=== PATIENT | male | born 1995 | race American Indian/Alaskan Native ===

== ENCOUNTER 2017-05-31 13:55 | Emergency (ER) | payer SELFPAY ==
[2017-05-31 14:45] VITALS: BP 127/79
[2017-05-31] MEDS ORDERED: MOTRIN PO ONE (16:04)
--- NOTE | 2017-05-31 16:49 | Emergency Department Report ---
ED Lower Extremity HPI - General Chief Complaint: Extremity Injury, Lower Stated Complaint: RIGHT KNEE INJURY Time Seen by Provider: 05/31/17 16:04 Source: patient Mode of arrival: Ambulatory Limitations: No Limitations - History of Present Illness Initial Comments: This is a 22-year-old male nontoxic, well nourished in appearance, no acute signs of distress presents to the ED with c/o of right knee pain and swelling. Patient stated he was playing with son this morning and twisted knee. Patient denies any trauma to the area. Patient denies any numbness, tingling, fever, chills, headache, nausea, vomiting, chest pain, shortness of breathe, numbness or tingling. Patient denies joint redness. Denies decreased ROM. PAtient denies any allergies or PMH. MD Complaint: knee injury -: days(s) (1) Injury: Knee: Right Type of Injury: inversion Place: home Severity: mild Severity scale (0 -10): 8 Improves With: immobilization Worsens With: movement, palpation Associated Symptoms: swelling, able to partially bear weight, ambulatory. denies: snap/pop sensation, numbness, tingling, unable to bear weight - Related Data Previous Rx's Medication Instructions Recorded Last Taken Type Ibuprofen [Motrin] 600 mg PO Q8H PRN #30 tablet 05/31/17 Unknown Rx Allergies Allergy/AdvReac Type Severity Reaction Status Date / Time No Known Allergies Allergy Unverified 05/31/17 14:41 ED Review of Systems ROS: Stated complaint: RIGHT KNEE INJURY Other details as noted in HPI Constitutional: denies: chills, fever Eyes: denies: eye pain, eye discharge, vision change ENT: denies: ear pain, throat pain Respiratory: denies: cough, shortness of breath, wheezing Cardiovascular: denies: chest pain, palpitations Endocrine: no symptoms reported Gastrointestinal: denies: abdominal pain, nausea, diarrhea Genitourinary: denies: urgency, dysuria Musculoskeletal: arthralgia. denies: back pain, joint swelling Skin: denies: rash, lesions Neurological: denies: headache, weakness, paresthesias Psychiatric: denies: anxiety, depression Hematological/Lymphatic: denies: easy bleeding, easy bruising ED Past Medical Hx - Past Medical History Previous Medical History?: No - Surgical History Past Surgical History?: No - Social History Smoking Status: Current Every Day Smoker Substance Use Type: None - Medications Home Medications: Home Medications Medication Instructions Recorded Confirmed Last Taken Type Ibuprofen [Motrin] 600 mg PO Q8H PRN #30 tablet 05/31/17 Unknown Rx ED Physical Exam - General Limitations: No Limitations General appearance: alert, in no apparent distress - Head Head exam: Present: atraumatic, normocephalic - Eye Eye exam: Present: normal appearance Pupils: Present: normal accommodation - ENT ENT exam: Present: normal exam, mucous membranes moist - Neck Neck exam: Present: normal inspection, full ROM - Respiratory Respiratory exam: Present: normal lung sounds bilaterally. Absent: respiratory distress, wheezes, rales, rhonchi, stridor, chest wall tenderness, accessory muscle use, decreased breath sounds, prolonged expiratory - Cardiovascular Cardiovascular Exam: Present: regular rate, normal rhythm, normal heart sounds. Absent: bradycardia, tachycardia, irregular rhythm, systolic murmur, diastolic murmur, rubs, gallop - GI/Abdominal GI/Abdominal exam: Present: soft, normal bowel sounds - Rectal Rectal exam: Present: deferred - Extremities Exam Extremities exam: Present: normal inspection, full ROM, tenderness, normal capillary refill. Absent: pedal edema, joint swelling, calf tenderness - Expanded Lower Extremity Exam Right Hip exam: Present: normal inspection, full ROM Upper Leg exam: Present: normal inspection, full ROM Knee exam: Present: normal inspection, full ROM, tenderness, swelling, full knee extension. Absent: abrasion, laceration, ecchymosis, deformity, crepidus, dislocation, erythema, effusion, pain w/ pronation/supination, posterior draw sign, pain/laxity with valgus, pain/laxity with varus Lower Leg exam: Present: normal inspection, full ROM. Absent: tenderness, swelling, abrasion, laceration, ecchymosis, deformity, crepidus, dislocation, erythema, palpable cord, Yasmine's sign Ankle exam: Present: normal inspection, full ROM Foot/Toe exam: Present: normal inspection. Absent: full ROM, tenderness Neuro vascular tendon exam: Present: no vascular compromise. Absent: pulse deficit, abnormal cap refill, motor deficit, sensory deficit, tendon deficit, extremity cold to touch, pallor, abnormal 2-point discrimination, decreased fine /light touch, foot drop, peroneal nerve deficit, significant pain with passive ROM of distal joint Gait: Positive: observed and limited by pain - Back Exam Back exam: Present: normal inspection, full ROM - Neurological Exam Neurological exam: Present: alert, oriented X3, normal gait - Psychiatric Psychiatric exam: Present: normal affect, normal mood - Skin Skin exam: Present: warm, dry, intact, normal color. Absent: rash ED Course Vital Signs 05/31/17 14:41 Temperature 98.3 F Pulse Rate 81 Respiratory 15 Rate Blood Pressure 127/79 O2 Sat by Pulse 100 Oximetry - Reevaluation(s) Reevaluation #1: 05/31/17 16:52 Patient is speaking in full sentences with no signs of distress noted. ED Lower Extremity MDM - Medical Decision Making This is a 22-year-old male that presents with right knee strain. Patient is stable and was examined by me. Xray has been obtained and dictated by the radiologist within normal limits. Patient is notified of the xray results with no questions noted by the patient. There is no joint redness or signs of any cellultitis. Normal ROM. Not warm to touch. Patient received Motrin in the ED which patient stated symptoms are improving and subsiding. Patient is dishcarged with motrin and wasinstructed to RICE therapy. Pt receievd knee immbolizer for patient control. PAtient was instructed and referrred to Follow- up with a orthopedic doctor in 3-5 days or if symptoms worsen and continue return to emergency room as soon as possible. At time of discharge, the patient does not seem toxic or ill in appearance. No acute signs of distress noted. Patient agrees to discharge treatment plan of care. No further questions noted by the patient. Critical care attestation.: If time is entered above; I have spent that time in minutes in the direct care of this critically ill patient, excluding procedure time. ED Disposition Clinical Impression: Strain of right knee Qualifiers: Encounter type: initial encounter Qualified Code(s): S86.911A - Strain of unspecified muscle(s) and tendon(s) at lower leg level, right leg, initial encounter Disposition: TO HOME OR SELFCARE Is pt being admited?: No Does the pt Need Aspirin: No Condition: Stable Instructions: Knee Pain (ED), Knee Immobilizer (ED), RICE Therapy (ED), Ibuprofen (By mouth) Additional Instructions: Follow-up with a orthopedic doctor in 3-5 days or if symptoms worsen and continue return to emergency room as soon as possible. Prescriptions: Ibuprofen [Motrin] 600 mg PO Q8H PRN #30 tablet PRN Reason: Pain Referrals: PRIMARY CARE, [Referring] - 3-5 Days CARLOS PRINCE MD [Staff Physician] - 3-5 Days [facility] [place] [Outside] - 3-5 Days [facility] [Outside] - 3-5 Days Forms: Work/School Release Form(ED)
--- NOTE | 2017-05-31 17:30 | XRay Report ---
FINAL REPORT EXAM: XR KNEE 3V RT HISTORY: right knee pain TECHNIQUE: AP, oblique, and lateral views of the right knee PRIORS: None. FINDINGS: No acute fracture or dislocation is seen. The soft tissues are unremarkable with no evidence for suprapatellar joint effusion. Joint spaces are maintained and bony mineralization is normal. IMPRESSION: Negative views of the right knee.
== END 2017-05-31 17:43 | disposition home or self-care (01) ==
LOC: EDSEX → ED 13:55
DX: S86.911A Strain of unspecified muscle(s) and tendon(s) at lower leg level, right leg, initial encounter (principal); F17.200 Nicotine dependence, unspecified, uncomplicated; X58.XXXA Exposure to other specified factors, initial encounter; Y93.89 Activity, other specified; Y92.89 Other specified places as the place of occurrence of the external cause; Y99.8 Other external cause status
CPT/HCPCS: 99283

== ENCOUNTER 2019-04-30 08:35 | Emergency (ER) | payer SELFPAY ==
--- NOTE | 2019-04-30 11:23 | Emergency Department Report ---
ED General Adult HPI - General Chief complaint: Nausea/Vomiting/Diarrhea Stated complaint: STOMACH PAIN,COUGH Time Seen by Provider: 04/30/19 10:12 Source: patient Mode of arrival: Ambulatory Limitations: No Limitations - History of Present Illness Initial comments: 24-year-old -Citizen Of [place] male patient with history of "kidney growth removal" in 1999 presents with complaints of stomachaches, 50 pound weight loss, headaches, loss of appetite, nausea and vomiting, cough, and hair loss for the past 6 months. Patient is requesting testing for HIV. He also states he has had a diffuse rash that is dry and dark pigmented on his arms chest and legs. He admits to abdominal pin but denies any chest pain, shortness of breath, hematemesis/coffee-ground emesis, diarrhea, or hematochezia/melena. He also denies any known family history of cancer or thyroid disease. -: Gradual, month(s) - Related Data Previous Rx's Medication Instructions Recorded Last Taken Type Ibuprofen [Motrin] 600 mg PO Q8H PRN #30 tablet 05/31/17 Unknown Rx Allergies Allergy/AdvReac Type Severity Reaction Status Date / Time No Known Allergies Allergy Unverified 05/31/17 14:41 ED Review of Systems ROS: Stated complaint: STOMACH PAIN,COUGH Other details as noted in HPI Constitutional: malaise, weakness. denies: chills, diaphoresis, fever Eyes: denies: eye pain, vision change ENT: denies: throat pain Respiratory: cough. denies: shortness of breath Cardiovascular: denies: chest pain, edema, syncope Endocrine: denies: excessive sweating, flushing, increased thirst Gastrointestinal: abdominal pain (intermittent ), nausea, vomiting. denies: diarrhea, constipation, hematemesis, melena, hematochezia Genitourinary: denies: dysuria, frequency, hematuria, discharge, testicular pain, testicular mass Skin: rash Neurological: headache. denies: numbness, paresthesias, confusion, abnormal gait Hematological/Lymphatic: denies: easy bleeding, swollen glands ED Past Medical Hx - Past Medical History Previous Medical History?: No - Surgical History Past Surgical History?: Yes Additional Surgical History: "growth removed from kidney" - Social History Smoking Status: Current Every Day Smoker Substance Use Type: None - Medications Home Medications: Home Medications Medication Instructions Recorded Confirmed Last Taken Type Ibuprofen [Motrin] 600 mg PO Q8H PRN #30 tablet 05/31/17 Unknown Rx ED Physical Exam - General Limitations: No Limitations General appearance: alert, in no apparent distress - Head Head exam: Present: atraumatic, normocephalic - Eye Eye exam: Present: normal appearance. Absent: scleral icterus - ENT ENT exam: Present: normal orophraynx, mucous membranes moist - Neck Neck exam: Present: normal inspection, full ROM. Absent: tenderness, lymphadenopathy - Respiratory Respiratory exam: Present: normal lung sounds bilaterally. Absent: respiratory distress - Cardiovascular Cardiovascular Exam: Present: normal rhythm, tachycardia (mild ), normal heart sounds - GI/Abdominal GI/Abdominal exam: Present: soft, tenderness (periumbilical), normal bowel sounds. Absent: distended, guarding, rebound, rigid, organomegaly, mass, hernia - Rectal Rectal exam: Present: deferred - Extremities Exam Extremities exam: Present: normal inspection, full ROM. Absent: tenderness, pedal edema, joint swelling, calf tenderness (No swelling or edema noted) - Back Exam Back exam: Present: normal inspection. Absent: CVA tenderness (R), CVA tenderness (L), paraspinal tenderness, vertebral tenderness - Neurological Exam Neurological exam: Present: alert, oriented X3, CN II-XII intact, normal gait. Absent: motor sensory deficit - Expanded Neurological Exam Expanded Cerebellar function: Finger to Nose: Normal, Heel to [place]: Normal, Romberg: Normal Sensory exam: Upper Extremity Light Touch: Normal, Lower Extremity Light Touch: Normal Motor strength exam: RUE: 5, LUE: 5, RLE: 5, LLE: 5 - Psychiatric Psychiatric exam: Present: normal affect, normal mood - Skin Skin exam: Present: warm, dry, intact, other (Diffuse maculopapular darkening dryness of skin noted on torso arms and legs without erythema or tenderness noted). Absent: cyanosis, diaphoretic, erythema ED Course Vital Signs 04/30/19 04/30/19 08:40 16:24 Temperature 98.3 F 102.5 F H Pulse Rate 102 H 121 H Respiratory 16 18 Rate Blood Pressure 124/81 120/77 O2 Sat by Pulse 99 100 Oximetry ED Medical Decision Making - Lab Data Result diagrams: 04/30/19 11:19 04/30/19 11:19 Lab Results 04/30/19 04/30/19 04/30/19 Range/Units 11:19 11:19 11:19 WBC 3.6 L (4.5-11.0) K/mm3 RBC 3.60 L (3.65-5.03) M/mm3 Hgb 10.3 L (11.8-15.2) gm/dl Hct 30.2 L (35.5-45.6) % MCV 84 (84-94) fl MCH 29 (28-32) pg MCHC 34 (32-34) % RDW 13.6 (13.2-15.2) % Plt Count 141 (140-440) K/mm3 [place] % (Auto) Rehabilitation Team Lead Add Manual Diff Complete Total Counted 100 Seg Neuts % (Manual) 79.0 H (40.0-70.0) % Band Neutrophils % 6.0 % Lymphocytes % (Manual) 4.0 L (13.4-35.0) % Reactive Lymphs % (Man) 0 % Monocytes % (Manual) 5.0 (0.0-7.3) % Eosinophils % (Manual) 6.0 H (0.0-4.3) % Basophils % (Manual) 0 (0.0-1.8) % Metamyelocytes % 0 % Myelocytes % 0 % Promyelocytes % 0 % Blast Cells % 0 % Nucleated RBC % 1.0 H (0.0-0.9) % Seg Neutrophils # Man 2.8 (1.8-7.7) K/mm3 Band Neutrophils # 0.2 K/mm3 Lymphocytes # (Manual) 0.1 L (1.2-5.4) K/mm3 Abs React Lymphs (Man) 0.0 K/mm3 Monocytes # (Manual) 0.2 (0.0-0.8) K/mm3 Eosinophils # (Manual) 0.2 (0.0-0.4) K/mm3 Basophils # (Manual) 0.0 (0.0-0.1) K/mm3 Metamyelocytes # 0.0 K/mm3 Myelocytes # 0.0 K/mm3 Promyelocytes # 0.0 K/mm3 Blast Cells # 0.0 K/mm3 WBC Morphology Not Reportable Hypersegmented Neuts Not Reportable Hyposegmented Neuts Not Reportable Hypogranular Neuts Not Reportable Smudge Cells Not Reportable Toxic Granulation Not Reportable Toxic Vacuolation Not Reportable Dohle Bodies Not Reportable Pelger-Huet Anomaly Not Reportable Tuan Rods Not Reportable Platelet Estimate Consistent w auto Clumped Platelets Not Reportable Plt Clumps, EDTA Not Reportable Large Platelets Not Reportable Giant Platelets Not Reportable Platelet Satelliting Not Reportable Plt Morphology Comment Not Reportable RBC Morphology Not Reportable Dimorphic RBCs Not Reportable Polychromasia Few Hypochromasia Not Reportable Poikilocytosis Not Reportable Anisocytosis 1+ Microcytosis Not Reportable Macrocytosis Not Reportable Spherocytes Not Reportable Pappenheimer Bodies Not Reportable Sickle Cells Not Reportable Target Cells Not Reportable Tear Drop Cells Not Reportable Ovalocytes Not Reportable Helmet Cells Not Reportable Quintanilla-Gas Bodies Not Reportable Logan Rings Not Reportable Tracy Cells Not Reportable Bite Cells Not Reportable Crenated Cell Not Reportable Elliptocytes 1+ Acanthocytes (Spur) Not Reportable Rouleaux Not Reportable Hemoglobin C Crystals Not Reportable Schistocytes Not Reportable Malaria parasites Not Reportable Dayo Bodies Not Reportable Hem Pathologist Commnt No Sodium 141 (137-145) mmol/L Potassium 3.5 L (3.6-5.0) mmol/L Chloride 102.0 (98-107) mmol/L Carbon Dioxide 24 (22-30) mmol/L Anion Gap 19 mmol/L BUN 7 L (9-20) mg/dL Creatinine 0.9 (0.8-1.5) mg/dL Estimated GFR > 60 ml/min BUN/Creatinine Ratio 8 % Glucose 92 (75-100) mg/dL Lactic Acid (0.7-2.0) mmol/L Calcium 8.9 (8.4-10.2) mg/dL Total Bilirubin 0.30 (0.1-1.2) mg/dL Direct Bilirubin < 0.2 (0-0.2) mg/dL Indirect Bilirubin 0.1 mg/dL AST 141 H (5-40) units/L ALT 27 (7-56) units/L Alkaline Phosphatase 128 (35-129) units/L Total Protein 7.2 (6.3-8.2) g/dL Albumin 3.5 L (3.9-5) g/dL Albumin/Globulin Ratio 0.9 % Lipase 75 H (13-60) units/L TSH 2.670 (0.270-4.200) mlU/mL Urine Color (Yellow) Urine Turbidity (Clear) Urine pH (5.0-7.0) Ur Specific [place] (1.003-1.030) Urine Protein (Negative) mg/dL Urine Glucose (UA) (Negative) mg/dL Urine Ketones (Negative) mg/dL Urine Blood (Negative) Urine Nitrite (Negative) Urine Bilirubin (Negative) Urine Urobilinogen (<2.0) mg/dL Ur Leukocyte Esterase (Negative) Urine WBC (Auto) (0.0-6.0) /HPF Urine RBC (Auto) (0.0-6.0) /HPF 04/30/19 04/30/19 Range/Units 13:01 14:54 WBC (4.5-11.0) K/mm3 RBC (3.65-5.03) M/mm3 Hgb (11.8-15.2) gm/dl Hct (35.5-45.6) % MCV (84-94) fl MCH (28-32) pg MCHC (32-34) % RDW (13.2-15.2) % Plt Count (140-440) K/mm3 [place] % (Auto) Add Manual Diff Total Counted Seg Neuts % (Manual) (40.0-70.0) % Band Neutrophils % % Lymphocytes % (Manual) (13.4-35.0) % Reactive Lymphs % (Man) % Monocytes % (Manual) (0.0-7.3) % Eosinophils % (Manual) (0.0-4.3) % Basophils % (Manual) (0.0-1.8) % Metamyelocytes % % Myelocytes % % Promyelocytes % % Blast Cells % % Nucleated RBC % (0.0-0.9) % Seg Neutrophils # Man (1.8-7.7) K/mm3 Band Neutrophils # K/mm3 Lymphocytes # (Manual) (1.2-5.4) K/mm3 Abs React Lymphs (Man) K/mm3 Monocytes # (Manual) (0.0-0.8) K/mm3 Eosinophils # (Manual) (0.0-0.4) K/mm3 Basophils # (Manual) (0.0-0.1) K/mm3 Metamyelocytes # K/mm3 Myelocytes # K/mm3 Promyelocytes # K/mm3 Blast Cells # K/mm3 WBC Morphology Hypersegmented Neuts Hyposegmented Neuts Hypogranular Neuts Smudge Cells Toxic Granulation Toxic Vacuolation Dohle Bodies Pelger-Huet Anomaly Tuan Rods Platelet Estimate Clumped Platelets Plt Clumps, EDTA Large Platelets Giant Platelets Platelet Satelliting Plt Morphology Comment RBC Morphology Dimorphic RBCs Polychromasia Hypochromasia Poikilocytosis Anisocytosis Microcytosis Macrocytosis Spherocytes Pappenheimer Bodies Sickle Cells Target Cells Tear Drop Cells Ovalocytes Helmet Cells Quintanilla-Gas Bodies Logan Rings Tracy Cells Bite Cells Crenated Cell Elliptocytes Acanthocytes (Spur) Rouleaux Hemoglobin C Crystals Schistocytes Malaria parasites Dayo Bodies Hem Pathologist Commnt Sodium (137-145) mmol/L Potassium (3.6-5.0) mmol/L Chloride (98-107) mmol/L Carbon Dioxide (22-30) mmol/L Anion Gap mmol/L BUN (9-20) mg/dL Creatinine (0.8-1.5) mg/dL Estimated GFR ml/min BUN/Creatinine Ratio % Glucose (75-100) mg/dL Lactic Acid 1.40 (0.7-2.0) mmol/L Calcium (8.4-10.2) mg/dL Total Bilirubin (0.1-1.2) mg/dL Direct Bilirubin (0-0.2) mg/dL Indirect Bilirubin mg/dL AST (5-40) units/L ALT (7-56) units/L Alkaline Phosphatase (35-129) units/L Total Protein (6.3-8.2) g/dL Albumin (3.9-5) g/dL Albumin/Globulin Ratio % Lipase (13-60) units/L TSH (0.270-4.200) mlU/mL Urine Color Yellow (Yellow) Urine Turbidity Clear (Clear) Urine pH 7.0 (5.0-7.0) Ur Specific [place] 1.008 (1.003-1.030) Urine Protein <15 mg/dl (Negative) mg/dL Urine Glucose (UA) Neg (Negative) mg/dL Urine Ketones Neg (Negative) mg/dL Urine Blood Neg (Negative) Urine Nitrite Neg (Negative) Urine Bilirubin Neg (Negative) Urine Urobilinogen 2.0 (<2.0) mg/dL Ur Leukocyte Esterase Neg (Negative) Urine WBC (Auto) < 1.0 (0.0-6.0) /HPF Urine RBC (Auto) < 1.0 (0.0-6.0) /HPF - Radiology Data Radiology results: report reviewed CHEST 2 VIEWS INDICATION: cough x 2.5 months. COMPARISON: None FINDINGS: Support devices: None. Heart: Within normal limits. Lungs/pleura: Patchy bilateral infiltrates are identified right greater than left. No significant pleural fluid or pneumothorax. Additional findings: None. IMPRESSION: Bilateral patchy infiltrates are identified concerning for pneumonia. CT ABDOMEN AND PELVIS WITH CONTRAST HISTORY: mid abdominal pain COMPARISON: None. TECHNIQUE: Axial CT images were obtained through the abdomen and pelvis after 100 cc of Omnipaque 300 intravenously. Sagittal and coronal reformatted images. All CT scans at this location are p erformed using CT dose reduction for ALARA by means of automated exposure control. FINDINGS: CT ABDOMEN: Lung Bases: Patchy peribronchial infiltrates are noted in the lower lung zones concerning for pneumonia. Liver: No significant abnormality. Biliary: No significant abnormality. Spleen: No significant abnormality. Unenlarged. Pancreas: No significant abnormality. Adrenals: No significant abnormality. Kidneys: There is mild to moderate pyelocaliectasis in the right kidney. There appears to be a transition point near the ureteropelvic junction. No obstructing lesion is seen. The left kidney and collecting system are unremarkable. Lymphatics: No lymphadenopathy. Vasculature: No significant abnormality. Bowel/Peritoneum: No significant abnormality. No free air. No free fluid. The appendix is not confidently identified. CT PELVIS: : No significant abnormality. Osseous Structures: No significant abnormality. Additional Findings: None IMPRESSION: Bilateral lung infiltrates are partially imaged concerning for pneumonia or other inflammatory process. Mild to moderate pyelocaliectasis in the right kidney. Stricture at the right UPJ is suspected. No acute inflammatory process is identified in the abdomen or pelvis. - Medical Decision Making 24-year-old male patient here with complaints of weight loss, hair loss, decreased appetite, nausea and vomiting, abdominal pain, and cough for the past 6 months. He denies known history of HIV. WBCs = 3.6. TSH is normal. ALT and lipase are mildly elevated. CT abdomen is negative for acute findings, however does show right renal changes likely from the removal of the mass on patient's kidney years ago. Initial vitals were normal however patient now is tachycardia at 120 with a fever 102.5. Lactic acid is normal. Blood cultures taken. Patient given Levaquin IV. Discussed patient with Dr. Feng, [facility], who is to discharge this patient home. Critical care attestation.: If time is entered above; I have spent that time in minutes in the direct care of this critically ill patient, excluding procedure time. ED Disposition Clinical Impression: Bilateral pneumonia Qualifiers: Pneumonia type: due to unspecified organism Lung location: unspecified part of lung Qualified Code(s): J18.9 - Pneumonia, unspecified organism Disposition: OP ADMIT IP TO THIS HOSP Is pt being admited?: Yes Condition: Stable Instructions: Bacterial Pneumonia (ED) Referrals: MARCIN NAVA MD [Staff Physician] - 3-5 Days
[2019-04-30 11:32] LABS: Hematocrit 30.2 % (35.5-45.6); Hemoglobin 10.3 gm/dl (11.8-15.2); Mean Corpuscular HGB Conc 34 % (32-34); Mean Corpuscular Volume 84 fl (84-94); Platelet Count 141 K/mm3 (140-440); Red Cell Distribution Width 13.6 % (13.2-15.2)
--- NOTE | 2019-04-30 11:53 | XRay Report ---
CHEST 2 VIEWS INDICATION: cough x 2.5 months. COMPARISON: None FINDINGS: Support devices: None. Heart: Within normal limits. Lungs/pleura: Patchy bilateral infiltrates are identified right greater than left. No significant pl eural fluid or pneumothorax. Additional findings: None. IMPRESSION: Bilateral patchy infiltrates are identified concerning for pneumonia. Signer Name: Stefan Alejandre Jr, MD Signed: 04/30/2019 11:49 AM Workstation Name: [id number]
[2019-04-30 12:17] LABS: Alanine Aminotransferase 27 units/L (7-56); Albumin 3.5 g/dL (3.9-5); BUN/Creatinine Ratio 8; Bilirubin,Direct < 0.2 mg/dL (0-0.2); Blood Urea Nitrogen 7 mg/dL (9-20); Calcium 8.9 mg/dL (8.4-10.2); Hemolysis Index 6
[2019-04-30 13:15] LABS: Anisocytosis 1+; Band Neutrophils # (Manual) 0.2 K/mm3; Basophils % (Manual) 0 % (0.0-1.8); Total Cells Counted 100
[2019-04-30 13:16] LABS: Platelet Estimate Consistent w Auto
[2019-04-30 13:47] LABS: Bilirubin,Urine NEG (Negative); Blood,Urine NEG (Negative); Color,Urine Yellow (Yellow); Protein,Urine <15 mg/dL mg/dL (Negative)
[2019-04-30 13:57] LABS: RBC,Urine < 1.0 /HPF (0.0-6.0); WBC,Urine < 1.0 /HPF (0.0-6.0)
--- NOTE | 2019-04-30 14:19 | Cat Scan Report ---
CT ABDOMEN AND PELVIS WITH CONTRAST HISTORY: mid abdominal pain COMPARISON: None. TECHNIQUE: Axial CT images were obtained through the abdomen and pelvis after 100 cc of Omnipaque 300 intravenously. Sagittal and coronal reformatted images. All CT scans at this location are performed using CT dose reduction for ALARA by means of automated exposure control. FINDINGS: CT ABDOMEN: Lung Bases: Patchy peribronchial infiltrates are noted in the lower lung zones concerning for pneumon ia. Liver: No significant abnormality. Biliary: No significant abnormality. Spleen: No significant abnormality. Unenlarged. Pancreas: No significant abnormality. Adrenals: No significant abnormality. Kidneys: There is mild to moderate pyelocaliectasis in the right kidney. There appears to be a transi tion point near the ureteropelvic junction. No obstructing lesion is seen. The left kidney and collec ting system are unremarkable. Lymphatics: No lymphadenopathy. Vasculature: No significant abnormality. Bowel/Peritoneum: No significant abnormality. No free air. No free fluid. The appendix is not confide ntly identified. CT PELVIS: : No significant abnormality. Osseous Structures: No significant abnormality. Additional Findings: None IMPRESSION: Bilateral lung infiltrates are partially imaged concerning for pneumonia or other inflammatory proces s. Mild to moderate pyelocaliectasis in the right kidney. Stricture at the right UPJ is suspected. No acute inflammatory process is identified in the abdomen or pelvis. Signer Name: Stefan Alejandre Jr, MD Signed: 04/30/2019 2:15 PM Workstation Name: [id number]
[2019-04-30] MEDS ORDERED: hydrOXYzine HCL 25 MG TAB PO ONE (14:21)
[2019-04-30] MEDS ORDERED: BENZONATATE 100 MG CAP PO ONE (14:21)
[2019-04-30] MEDS ORDERED: IBUPROFEN 800 MG TAB PO ONE (16:28)
[2019-04-30] MEDS ORDERED: SODIUM CHLORIDE 0.9% 1000 ML 1,000 ML IV ONE ×2 (16:30)
[2019-04-30 19:36] VITALS: BP 123/77
--- NOTE | 2019-04-30 20:11 | Event Note ---
Date: 04/30/19 24-year-old male presents to ED for evaluation. Patient found to have atypical pneumonia as well as a combination of symptoms suggestive of systemic sclerosis. Patient treated with IV antibiotic therapy and IV fluid resuscitation therapy with improvement in symptoms. Patient is medically optimized and back to usual state of health. Patient is discharged home with oral antibiotic therapy and instructed to follow-up with primary care physician within 3 to 5 days for reevaluation. Patient also instructed to follow-up with rheumatology within 3 to 5 days for further care and evaluation. Patient treated with HIV testing as well as autoimmune evaluation with CHESTER, SCL 70, ANCA, and rheumatoid factor. Patient instructed to follow-up with primary care physician for review of lab studies and further care and evaluation. Patient counseled regarding noncompliance with outpatient follow-up. Patient acknowledges prior initial work-up without returning for completion of medical evaluation. Patient acknowledges understanding risk of worsening symptoms and even if he again becomes lost to outpatient follow-up and reevaluation. ED Physical Exam - General Limitations: No Limitations General appearance: alert, in no apparent distress - Head Head exam: Present: atraumatic, normocephalic - Eye Eye exam: Present: normal appearance. Absent: scleral icterus - ENT ENT exam: Present: normal orophraynx, mucous membranes moist - Neck Neck exam: Present: normal inspection, full ROM. Absent: tenderness, lymphadenopathy - Respiratory Respiratory exam: Present: normal lung sounds bilaterally. Absent: respiratory distress - Cardiovascular Cardiovascular Exam: Present: normal rhythm, tachycardia (mild ), normal heart sounds - GI/Abdominal GI/Abdominal exam: Present: soft, tenderness (periumbilical), normal bowel sounds. Absent: distended, guarding, rebound, rigid, organomegaly, mass, hernia - Rectal Rectal exam: Present: deferred - Extremities Exam Extremities exam: Present: normal inspection, full ROM. Absent: tenderness, pedal edema, joint swelling, calf tenderness (No swelling or edema noted) - Back Exam Back exam: Present: normal inspection. Absent: CVA tenderness (R), CVA tenderness (L), paraspinal tenderness, vertebral tenderness - Neurological Exam Neurological exam: Present: alert, oriented X3, CN II-XII intact, normal gait. Absent: motor sensory deficit - Expanded Neurological Exam Expanded Cerebellar function: Finger to Nose: Normal, Heel to [place]: Normal, Romberg: Normal Sensory exam: Upper Extremity Light Touch: Normal, Lower Extremity Light Touch: Normal Motor strength exam: RUE: 5, LUE: 5, RLE: 5, LLE: 5 - Psychiatric Psychiatric exam: Present: normal affect, normal mood - Skin Skin exam: Present: warm, dry, intact, other (Diffuse maculopapular darkening dryness of skin noted on torso arms and legs without erythema or tenderness noted). Absent: cyanosis, diaphoretic, erythema
[2019-05-04 07:08] LABS: HIV-1 Antibody Differentiation SEE SCANNED RESULT; HIV-2 Antibody Differentiation SEE SCANNED RESULT
[2019-05-04 12:43] LABS: ANA Screen, IFA Negative (Negative); Myeloperoxidase Antibody <1.0 AI (<1.0)
== END 2019-04-30 21:58 | disposition admitted as inpatient to this hospital (09) ==
LOC: ED 08:35
DX: J18.9 Pneumonia, unspecified organism (principal)
CPT/HCPCS: 36415; 71046; 74177; 80048; 80076; 81001; 82140; 83690; 84443; 85007; 85025; 86021; 86038; 86235; 86431; 86689; 87040; 87400; 96365; 99284; J1956; J7030; Q9967

== ENCOUNTER 2019-05-30 16:25 | Inpatient (IN) | payer SELFPAY ==
[2019-05-30] MEDS ORDERED: SODIUM CHLORIDE 0.9% 1000 ML 1,000 ML IV ONE (18:37)
--- NOTE | 2019-05-30 18:42 | Emergency Department Report ---
ED Syncope HPI - General Chief Complaint: Dyspnea/Respdistress Stated Complaint: SHORTNESS OF BREATH Time Seen by Provider: 05/30/19 18:36 Source: patient - History of Present Illness Initial Comments: Patient is a 24-year-old male that presents emergency room with complaints of syncopal episode. Patient states that he was at his residence and became short of breath and having palpitations and the patient passed out. Patient states he was feeling anxious. Patient states he was recently diagnosed with HIV 2 weeks ago. Patient states that when he was evaluated for HIV he was also tested for covid-19. Patient states that he was hyperventilating when he first arrived and was feeling anxious. Patient states he has relaxed. Patient states he was smoking marijuana and had a big cough and then became acutely short of breath. Patient states his shortness of breath is resolved. Patient denies cough at this time. Patient denies fever and chills at this time. Patient states he is currently taking his prescriptions for his HIV. Patient states he has not seen a ID yet. Timing/Prior Episodes: single episode today Precipitating Factors: Positive: lightheadedness, rapid heart beat (Shortness of breath and anxiety), other Context: emotional stress Loss of Consciousness: brief (seconds) Current Symptoms: lightheadedness. denies: blurred vision, chest pain, diap horesis, dizziness, headache, injury, loss of bladder control, loss of bowel control, motionless, nausea, pale, shallow/rapid breathing, weak/absent pulse - Related Data Allergies/Adverse Reactions: Allergies No Known Allergies Allergy (Verified 05/30/19 17:09) Home Medications: Ambulatory Orders Ibuprofen [Motrin] 600 mg PO Q8H PRN #30 tablet 05/31/17 Ciprofloxacin HCl [Ciprofloxacin TAB] 500 mg PO Q12HR #20 tab 04/30/19 ED Review of Systems ROS: Stated complaint: SHORTNESS OF BREATH Other details as noted in HPI Constitutional: denies: chills, fever Eyes: denies: eye pain, eye discharge, vision change ENT: denies: ear pain, throat pain Respiratory: shortness of breath. denies: cough, wheezing Cardiovascular: denies: chest pain, palpitations Endocrine: no symptoms reported Gastrointestinal: denies: abdominal pain, nausea, diarrhea Genitourinary: denies: urgency, dysuria Musculoskeletal: denies: back pain, joint swelling, arthralgia Skin: denies: rash, lesions Neurological: as per HPI. denies: headache, paresthesias Psychiatric: anxiety. 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" - Family History Family history: no significant - Social History Smoking Status: Current Every Day Smoker Substance Use Type: Alcohol, Marijuana - Medications Home Medications: Home Medications Medication Instructions Recorded Confirmed Last Taken Type Ibuprofen [Motrin] 600 mg PO Q8H PRN #30 tablet 05/31/17 Unknown Rx Ciprofloxacin HCl [Ciprofloxacin 500 mg PO Q12HR #20 tab 04/30/19 Unknown Rx TAB] ED Physical Exam - General Limitations: No Limitations General appearance: alert, in no apparent distress - Head Head exam: Present: atraumatic, normocephalic - Eye Eye exam: Present: normal appearance - ENT ENT exam: Present: mucous membranes moist - Neck Neck exam: Present: normal inspection - Respiratory Respiratory exam: Present: normal lung sounds bilaterally. Absent: respiratory distress - Cardiovascular Cardiovascular Exam: Present: regular rate, normal rhythm. Absent: systolic murmur, diastolic murmur, rubs, gallop - GI/Abdominal GI/Abdominal exam: Present: soft, normal bowel sounds - Rectal Rectal exam: Present: deferred - Extremities Exam Extremities exam: Present: normal inspection - Back Exam Back exam: Present: normal inspection - Neurological Exam Neurological exam: Present: alert, oriented X3 - Psychiatric Psychiatric exam: Present: normal affect, normal mood - Skin Skin exam: Present: warm, dry, intact, normal color. Absent: rash ED Course Vital Signs 05/30/19 05/30/19 05/30/19 16:30 16:49 17:00 Temperature 99.1 F Pulse Rate 141 H 133 H Respiratory 21 19 Rate Blood Pressure 121/79 Blood Pressure 137/81 [Right] O2 Sat by Pulse 98 99 Oximetry 05/30/19 05/30/19 05/30/19 17:15 17:30 17:45 Temperature Pulse Rate 122 H Respiratory 33 H Rate Blood Pressure 116/86 114/82 113/86 Blood Pressure [Right] O2 Sat by Pulse 99 100 100 Oximetry 05/30/19 05/30/19 05/30/19 18:00 18:16 18:30 Temperature Pulse Rate 117 H 113 H 119 H Respiratory 26 H 28 H 29 H Rate Blood Pressure 114/81 116/79 127/84 Blood Pressure [Right] O2 Sat by Pulse 100 100 99 Oximetry 05/30/19 05/30/19 05/30/19 18:46 19:00 19:16 Temperature Pulse Rate Respiratory Rate Blood Pressure 127/84 126/84 135/79 Blood Pressure [Right] O2 Sat by Pulse 97 99 99 Oximetry 05/30/19 05/30/19 05/30/19 19:30 19:46 20:02 Temperature Pulse Rate 118 H Respiratory 30 H Rate Blood Pressure 135/79 135/77 135/77 Blood Pressure [Right] O2 Sat by Pulse 99 100 100 Oximetry 05/30/19 05/30/19 05/30/19 20:15 20:30 20:45 Temperature Pulse Rate 105 H 105 H 104 H Respiratory 24 16 17 Rate Blood Pressure 126/82 113/70 112/69 Blood Pressure [Right] O2 Sat by Pulse 100 100 100 Oximetry - Reevaluation(s) Reevaluation #1: I discussed chest x-ray results with patient. Patient will be admitted after t he rest of his results return. Patient placed on 4 L of O2 via nasal cannula. 05/30/19 19:43 Reevaluation #2: I discussed all results with patient. I discussed plan of care with patient. Patient agrees with plan of care and admission. Patient to be admitted to the hospitalist service. 05/30/19 21:07 - Consultations Consultation #1: I discussed case with pulmonology, Dr. Hennessy. Dr. Hennessy states to place the patient on 4 L of oxygen and admit and we will repeat the x-ray in the morning. 05/30/19 19:[address] results with Dr. Hennessy and Dr. Hennessy recommends oxygen and no change in therapy or treatment. 05/31/19 02:31 Consultation #2: Hospitalist consulted for admission. Hospitalist to admit patient. However Dr. Bowen wanted a CTA of the chest prior to admission. 05/30/19 21:07 Hospitalist reconsulted for admission. Hospitalist admit patient. Bridge orders placed 05/31/19 02:18 ED Medical Decision Making - Lab Data Result diagrams: 05/30/19 19:12 05/30/19 19:12 - EKG Data -: EKG Interpreted by Vt EKG shows normal: sinus rhythm, axis, intervals, QRS complexes, ST-T waves Rate: tachycardia - Radiology Data Radiology results: report reviewed CHEST 1 VIEW INDICATION / CLINICAL INFORMATION: Syncope. COMPARISON: 04/30/2019 FINDINGS: SUPPORT DEVICES: None. HEART / MEDIASTINUM: No significant abnormality. LUNGS / PLEURA: No significant pulmonary or pleural abnormality. Small anterior and apical left pneumothorax. Mild subcutaneous emphysema in the cervical soft tissues bilaterally and additional tiny pocket of extrathoracic air along the right chest wall superiorly, projecting over the body of the scapula. There are persistent reticular opacities in both lungs that have not definitely changed in comparison to 04/30/2019. No pleural fluid. IMPRESSION: Persistent bilateral reticular opacities. Small left pneumothorax. I reported the pneumothorax to Dr. Araujo by telephone at the time of dictation. CT BRAIN: 05/30/2019 INDICATION / CLINICAL INFORMATION: Syncope. COMPARISON: None available. FINDINGS: BRAIN/INTRACRANIAL STRUCTURES: Unenhanced CT images of the brain demonstrate no evidence of acute intracranial abnormality. Ventricles and sulci are prominent in size for a patient of this age, consistent with prominent diffuse cerebral atrophy. There is no evidence of acute ischemic injury, hemorrhage, or mass. There are no abnormal extra- axial fluid collections. EXTRACRANIAL STRUCTURES: Unremarkable. IMPRESSION: No acute abnormality. Prominent diffuse cerebral atrophy for age. CTA CHEST WITH CONTRAST INDICATION / CLINICAL INFORMATION: P.E. PROTOCOL!!! Pt complains of shortness of breath Omnipaque 350 / 100ml's was used for this exam.. TECHNIQUE: Axial CT images were obtained through the chest after injection of 100 MLO Omnipaque 350 IV contrast. 3 plane MIP and/or 3D reconstructions were produced. All CT scans at this location are performed using CT dose reduction for ALARA by means of automated exposure control. COMPARISON: Chest radiograph from earlier in the day. CT abdomen pelvis dated 04/30/19 FINDINGS: PULMONARY ARTERIES: No pulmonary emboli. THORACIC AORTA: No significant abnormality. HEART: Heart is normal size. No pericardial effusion. CORONARY ARTERIES: No significant calcification. MEDIASTINUM / JEANNETTE: Moderately extensive pneumomediastinum with pneumopericardium which extends into the neck where there is moderate subcutaneous soft tissue emphysema. PLEURA: No pleural effusion. No pneumothorax. Pneumomediastinum causes the lucency noted on radiograph earlier in the day. LUNGS: There has been slight progression of the extensive bilateral pulmonary opacities with development of small pneumatoceles/air cysts which may be the source of the pneumomediastinum. Upper and lower lobes are involved. ADDITIONAL FINDINGS: None. UPPER ABDOMEN: Dilated right renal pelvis is unchanged. SKELETAL STRUCTURES: No significant osseous abnormality. IMPRESSION: 1. No CT evidence for pulmonary embolism. 2. Moderately extensive pneumomediastinum with pneumopericardium and subcutaneous soft tissue emphysema in the neck. 3. No pneumothorax. 4. Progression of bilateral pulmonary opacities with development of pneumatoceles/cavitation which may be the source of the pneumomediastinum. - Medical Decision Making Patient is a 24-year-old male that presents emergency room with complaints of shortness of breath, anxiety and syncope. Patient found on x-ray to have a small pneumothorax. Patient labs essentially unremarkable except for elevated WBCs. Patient had a head CT for syncope and was negative for acute findings. Patient had a chest x-ray which showed a pneumothorax with some subcu emphysema in the neck. Patient then had a CTA of the chest as requested by the hospitalist. Patient CTA shows pneumothorax with pneumomediastinum and pneumopericardium. Dr. Hennessy was consulted after the x-ray findings and he recommends 4 L of oxygen via nasal cannula. Dr. Hoang was then reconsulted after the CTA results are back and he recommends no change in therapy and just placed the patient on 4 L of oxygen have a daily x-ray to resolution. Patient admitted to the hospitalist service. - Differential Diagnosis Shortness of breath, anxiety, pneumonia, PE Critical Care Time: Yes Critical care time in (mins) excluding proc time.: 80 Critical care attestation.: If time is entered above; I have spent that time in minutes in the direct care of this critically ill patient, excluding procedure time. Critical Care Time: 80 minutes ED Disposition Clinical Impression: Pneumothorax, acute, SOB (shortness of breath), Anxiety Syncope Qualifiers: Syncope type: unspecified Qualified Code(s): R55 - Syncope and collapse Anemia Qualifiers: Anemia type: unspecified type Qualified Code(s): D64.9 - Anemia, unspecified HIV (human immunodeficiency virus infection) Qualifiers: HIV symptom status: unspecified Qualified Code(s): B20 - Human immunodeficiency virus [HIV] disease Elevated WBC count Qualifiers: Leukocytosis type: unspecified Qualified Code(s): D72.829 - Elevated white blood cell count, unspecified Disposition: 09 OP ADMIT IP TO THIS HOSP Is pt being admited?: Yes Does the pt Need Aspirin: No Condition: Critical Time of Disposition: 02:22
--- NOTE | 2019-05-30 19:18 | XRay Report ---
CHEST 1 VIEW INDICATION / CLINICAL INFORMATION: Syncope. COMPARISON: 04/30/2019 FINDINGS: SUPPORT DEVICES: None. HEART / MEDIASTINUM: No significant abnormality. LUNGS / PLEURA: No significant pulmonary or pleural abnormality. Small anterior and apical left pneum othorax. Mild subcutaneous emphysema in the cervical soft tissues bilaterally and additional tiny poc ket of extrathoracic air along the right chest wall superiorly, projecting over the body of the scapu la. There are persistent reticular opacities in both lungs that have not definitely changed in compar alex to 04/30/2019. No pleural fluid. IMPRESSION: Persistent bilateral reticular opacities. Small left pneumothorax. I reported the pneumothorax to Dr. Araujo by telephone at the time of dictation. Signer Name: Jorge Lowery MD Signed: 05/30/2019 7:14 PM Workstation Name: [id number]
[2019-05-30 19:29] LABS: Basophils # (Auto) 0.1 K/mm3 (0.0-0.1); Basophils % (Auto) 0.3 % (0.0-1.8); Eosinophils # (Auto) 0.1 K/mm3 (0.0-0.4); Eosinophils % (Auto) 0.3 % (0.0-4.3); Hematocrit 26.8 % (35.5-45.6); Lymphocytes # (Auto) 0.5 K/mm3 (1.2-5.4); Lymphocytes % (Auto) 2.9 % (13.4-35.0); Mean Corpuscular HGB Conc 33 % (32-34); Mean Corpuscular Volume 85 fl (84-94); Monocytes # (Auto) 1.6 K/mm3 (0.0-0.8); Monocytes % (Auto) 9.2 % (0.0-7.3); Platelet Count 347 K/mm3 (140-440); Red Blood Count 3.16 M/mm3 (3.65-5.03); Red Cell Distribution Width 14.6 % (13.2-15.2)
[2019-05-30 19:47] LABS: Creatine Kinase MB 2.6 ng/mL (0.0-4.0)
[2019-05-30 19:49] LABS: Alanine Aminotransferase 24 units/L (7-56); Albumin 3.5 g/dL (3.9-5); BUN/Creatinine Ratio 15; Blood Urea Nitrogen 19 mg/dL (9-20); Hemolysis Index 1
--- NOTE | 2019-05-30 20:36 | Cat Scan Report ---
CT BRAIN: 05/30/2019 INDICATION / CLINICAL INFORMATION: Syncope. COMPARISON: None available. FINDINGS: BRAIN/INTRACRANIAL STRUCTURES: Unenhanced CT images of the brain demonstrate no evidence of acute int racranial abnormality. Ventricles and sulci are prominent in size for a patient of this age, consistent with prominent diffu se cerebral atrophy. There is no evidence of acute ischemic injury, hemorrhage, or mass. There are no abnormal extra-axial fluid collections. EXTRACRANIAL STRUCTURES: Unremarkable. IMPRESSION: No acute abnormality. Prominent diffuse cerebral atrophy for age. All CT scans at this location are performed using dose reduction to ALARA by means of automated expos ure control. Signer Name: Nathaniel Adan MD Signed: 05/30/2019 8:31 PM Workstation Name: [id number]
[2019-05-30 22:52] LABS: Bilirubin,Urine NEG (Negative); Blood,Urine NEG (Negative); Color,Urine Yellow (Yellow); Protein,Urine <15 mg/dL mg/dL (Negative)
[2019-05-30 22:58] LABS: Amphetamine Screen,Urine PRESUMPTIVE NEGATIVE; Benzodiazepines Screen,Urine PRESUMPTIVE NEGATIVE; Cocaine Screen,Urine PRESUMPTIVE NEGATIVE; Methadone Screen,Urine PRESUMPTIVE NEGATIVE; Opiate Screen,Urine PRESUMPTIVE NEGATIVE
[2019-05-30 23:12] LABS: Cannabinoid Screen,Urine PRESUMPTIVE POSITIVE
--- NOTE | 2019-05-31 02:00 | Cat Scan Report ---
CTA CHEST WITH CONTRAST INDICATION / CLINICAL INFORMATION: P.E. PROTOCOL!!! Pt complains of shortness of breath Omnipaque 350 / 100ml's was used for this exam. . TECHNIQUE: Axial CT images were obtained through the chest after injection of 100 MLO Omnipaque 350 IV contrast. 3 plane MIP and/or 3D reconstructions were produced. All CT scans at this location are performed usi ng CT dose reduction for ALARA by means of automated exposure control. COMPARISON: Chest radiograph from earlier in the day. CT abdomen pelvis dated 04/30/19 FINDINGS: PULMONARY ARTERIES: No pulmonary emboli. THORACIC AORTA: No significant abnormality. HEART: Heart is normal size. No pericardial effusion. CORONARY ARTERIES: No significant calcification. MEDIASTINUM / JEANNETTE: Moderately extensive pneumomediastinum with pneumopericardium which extends into the neck where there is moderate subcutaneous soft tissue emphysema. PLEURA: No pleural effusion. No pneumothorax. Pneumomediastinum causes the lucency noted on radiograp h earlier in the day. LUNGS: There has been slight progression of the extensive bilateral pulmonary opacities with developm ent of small pneumatoceles/air cysts which may be the source of the pneumomediastinum. Upper and lowe r lobes are involved. ADDITIONAL FINDINGS: None. UPPER ABDOMEN: Dilated right renal pelvis is unchanged. SKELETAL STRUCTURES: No significant osseous abnormality. IMPRESSION: 1. No CT evidence for pulmonary embolism. 2. Moderately extensive pneumomediastinum with pneumopericardium and subcutaneous soft tissue emphyse ma in the neck. 3. No pneumothorax. 4. Progression of bilateral pulmonary opacities with development of pneumatoceles/cavitation which ma y be the source of the pneumomediastinum. Signer Name: Thanh Shetty MD Signed: 05/31/2019 1:55 AM Workstation Name: [id number]
[2019-05-31 05:17] VITALS: BP 117/75
[2019-05-31] MEDS ORDERED: cefTRIAXone/NS 1 GM/50 ML 1 GM/50 ML BAG IV ONE (06:00)
--- NOTE | 2019-05-31 09:20 | XRay Report ---
CHEST 1 VIEW INDICATION: Pneumothorax. COMPARISON: 05/30/2019 FINDINGS: Support devices: None. Heart: Within normal limits. Pulmonary vasculature: Normal. Lungs/Pleura: Minimal residual left apical pneumothorax. Stable pneumomediastinum and subcutaneous em physema of the neck and upper chest. Bilateral multi lobar reticular lung opacities are unchanged. No pleural effusion. Additional findings: None. IMPRESSION: 1. Near complete resolution of left apical pneumothorax. 2. Bilateral multi lobar reticular lung opacities are unchanged. Signer Name: Baron Guerrier MD Signed: 05/31/2019 9:16 AM Workstation Name: [id number]
--- NOTE | 2019-05-31 12:22 | Event Note ---
Date: 05/31/19 Called by ED last night for patient with small apical Pneumothorax. Patient presented with shortness of breath. CXR showed this apical pneumon with some pneumomediastinum. IMS ammonium sulfate operator requested a CT done, CTA was done. No PE, did show extensive bilateral airspace disease that is likely chronic. Given his underlying diagnosis this could either by PCP or HIV related lung disease. His PTX is stable. The pneumomediastinum is stable and will improve with time. At this point, no further indication from a lung standpoint to be hospitalized. His repeat CXR this am was stable, no worse. ID has been consulted assuming because of COVID rule out. Patient has not been febrile here. Did have fever last month on 04/30. Needs outpatient follow up for HIV treatment. Will sign off. Call if questions.
--- NOTE | 2019-05-31 13:50 | History and Physical Report ---
History of Present Illness Date of examination: 05/31/19 Date of admission: 05/31/19 04:25 Chief complaint: Syncope History of present illness: Patient states he was recently diagnosed with HIV 2 weeks ago was also tested for covid-19 presented to hospital after having a syncopal episode. Patient states he was smoking marijuana and had a big cough and then became acutely short of breath. Patient states his shortness of breath is resolved. Patient denies cough at this time. Patient denies fever and chills at this time. Patient states he is currently taking his prescriptions for his HIV. Patient states he has not seen a ID yet. CXR showed Small left pneumothorax. CTA chest showed pneumomediastinum and bilateral opacities. Patient was started on IV antibiotic and call for admission for further evaluation and management. 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 Neck: No neck pain or rigidity. Cardiovascular: No chest pain, no orthopnea, no palpitations, no leg swelling Respiratory: no shortness of breath, no cough, no congestion, no wheezing Gastrointestinal: no abdominal pain, no nausea, no vomiting Genitourinary : no dysuria, no hematuria Musculoskeletal: no joint swelling or muscle ache Integumentary: no rash, no pruritis Neurological: no parathesias, no numbness, no tingling Endocrine: no cold or heat intolerance, no polyuria or polydipsia Hematologic/Lymphatic: no easy bruising, no easy bleeding, no gland swelling Allergic/Immunologic: no urticaria, no angioedema. Medications and Allergies Allergies Allergy/AdvReac Type Severity Reaction Status Date / Time No Known Allergies Allergy Verified 05/30/19 17:09 Home Medications Medication Instructions Recorded Confirmed Last Taken Type Ibuprofen [Motrin] 600 mg PO Q8H PRN #30 tablet 05/31/17 Unknown Rx Ciprofloxacin HCl [Ciprofloxacin 500 mg PO Q12HR #20 tab 04/30/19 Unknown Rx TAB] Exam - Physical Exam Narrative exam: GENERAL: well-developed and well-nourished -[place] male lying on bed appeared to be in no discomfort. HEENT: Normocephalic. Atraumatic. No conjunctival congestion or icterus. Patient has moist mucous membranes. NECK: Supple. Trachea midline. CHEST/LUNGS: Clear to auscultated bilaterally, breathing nonlabored. No wheezes crackles or rhonchi. HEART/CARDIOVASCULAR: Regular in rate and rhythm. S1 and S2 positive. ABDOMEN: Abdomen is soft, nontender. Patient has normal bowel sounds. SKIN: There is no rash. Warm and dry. NEURO: No focal motor deficit. Follows command. MUSCULOSKELETAL: No joint effusion or tenderness. EXTRIMITY: No edema, no cyanosis or clubbing. PSYCH: Cooperative. - Constitutional Vitals: Temp Pulse Resp BP Pulse Ox 98.1 F 112 H 25 H 117/75 100 05/31/19 05:17 05/31/19 05:17 05/31/19 05:17 05/31/19 04:50 05/31/19 08:43 Results - Labs CBC & Chem 7: 05/30/19 19:12 05/30/19 19:12 Labs: Abnormal lab results 05/30/19 05/30/19 05/30/19 Range/Units 19:12 19:12 19:12 WBC 17.1 H (4.5-11.0) K/mm3 RBC 3.16 L (3.65-5.03) M/mm3 Hgb 9.0 L (11.8-15.2) gm/dl Hct 26.8 L (35.5-45.6) % Lymph % (Auto) 2.9 L (13.4-35.0) % [place] % (Auto) 9.2 H (0.0-7.3) % Lymph # 0.5 L (1.2-5.4) K/mm3 [place] # 1.6 H (0.0-0.8) K/mm3 Seg Neutrophils % 87.3 H (40.0-70.0) % Seg Neutrophils # 14.9 H (1.8-7.7) K/mm3 AST 73 H (5-40) units/L Alkaline Phosphatase 147 H (35-129) units/L Total Creatine Kinase 282 H (55-170) units/L Albumin 3.5 L (3.9-5) g/dL Assessment and Plan Syncope, likely vasovagal -CT head without any acute findings Leukocytosis, could be reactive patient has been afebrile -We will follow blood culture Subcutaneous emphysema, patient appears to be stable Pneumomediastinum with pneumopericardium -Likely to be chronic continue to monitor for now -Pulmonary critical care has been consulted New diagnosis of HIV -Patient is currently on medications Bilateral pulmonary opacities versus pneumonia -We will continue Zithromax and Rocephin for now -We will get culture and consult ID Tobacco abuse and marijuana abuse -Counseled for cessation DVT prophylaxis, Lovenox Radiological data: CHEST 1 VIEW Persistent bilateral reticular opacities. Small left pneumothorax. CT BRAIN No acute abnormality. Prominent diffuse cerebral atrophy for age. CTA CHEST WITH CONTRAST 1. No CT evidence for pulmonary embolism. 2. Moderately extensive pneumomediastinum with pneumopericardium and subcutaneous soft tissue emphysema in the neck. 3. No pneumothorax. 4. Progression of bilateral pulmonary opacities with development of pneumatoceles/cavitation which may be the source of the pneumomediastinum.
[2019-05-31] MEDS ORDERED: ACETAMINOPHEN 325 MG TAB PO PRN (13:54)
[2019-05-31] MEDS ORDERED: hydrALAZINE 20 MG/1 ML INJ IV PRN (13:54)
[2019-05-31] MEDS ORDERED: ONDANSETRON 4 MG/2 ML INJ IV PRN (13:54)
[2019-05-31] MEDS ORDERED: ALUM-MAG HYDROXIDE-SIMETHICONE 200-200-20MG/5ML ORAL LIQD 30 ML PO PRN (13:54)
[2019-05-31] MEDS ORDERED: HYDROcodone/ACETAMINOPHEN 5-325 MG TAB PO PRN (13:54)
[2019-05-31] MEDS ORDERED: SODIUM CHLORIDE 0.9% 1000 ML 1,000 ML IV SCH (14:00)
[2019-05-31] MEDS ORDERED: IPRATROPIUM/ALBUTEROL SULFATE 3 ML AMPUL.NEB IH SCH (14:00)
--- NOTE | 2019-05-31 16:11 | Discharge Summary ---
Providers - Providers Date of Admission: 05/31/19 04:25 Date of discharge: 05/31/19 Attending physician: PAULIE KARIMI 05/31/19 13:55 Consult to Physician [CONS] Routine Comment: Consulting Provider: RUMA MCCARTY Physician Instructions: Reason For Exam: HIV Primary care physician: [facility] Hospitalization Condition: Critical Hospital course: Patient states he was recently diagnosed with HIV 2 weeks ago was also tested for covid-19 presented to hospital after having a syncopal episode. Patient states he was smoking marijuana and had a big cough and then became acutely short of breath. Patient states his shortness of breath is resolved. Patient denies cough at this time. Patient denies fever and chills at this time. Patient states he is currently taking his prescriptions for his HIV. Patient states he has not seen a ID yet. CXR showed Small left pneumothorax. CTA chest showed pneumomediastinum and bilateral opacities. Patient was started on IV antibiotic and call for admission for further evaluation and management. Patient was seen by Dr. Hennessy and I discussed personally with ID. Per the consultants recommendation patient was discharged home and instructed to follow- up outpatient. Patient was agreeable with the plan. He remained afebrile and no sign of hypoxia, was saturating greater than 96% on room air. Patient was discharged home in stable condition with outpatient follow-up. Discharge diagnosis: Syncope, likely vasovagal -CT head without any acute findings Leukocytosis, could be reactive patient has been afebrile -Negative blood culture Subcutaneous emphysema, patient appears to be stable Pneumomediastinum with pneumopericardium -Likely from pneumothorax -Pulmonary critical care has been consulted and recommended outpatient follow-up New diagnosis of HIV -Patient is currently on medications Bilateral pulmonary opacities versus pneumonia -Patient has similar finding during his previous admission -Discussed with ID and recommended Bactrim daily -Patient also instructed to follow-up at HIV clinic Tobacco abuse and marijuana abuse -Counseled for cessation DVT prophylaxis, Lovenox - Physical Exam GENERAL: well-developed and well-nourished -[place] male lying on bed appeared to be in no discomfort. HEENT: Normocephalic. Atraumatic. No conjunctival congestion or icterus. Patient has moist mucous membranes. NECK: Supple. Trachea midline. CHEST/LUNGS: Clear to auscultated bilaterally, breathing nonlabored. No wheezes crackles or rhonchi. HEART/CARDIOVASCULAR: Regular in rate and rhythm. S1 and S2 positive. ABDOMEN: Abdomen is soft, nontender. Patient has normal bowel sounds. SKIN: There is no rash. Warm and dry. NEURO: No focal motor deficit. Follows command. MUSCULOSKELETAL: No joint effusion or tenderness. EXTRIMITY: No edema, no cyanosis or clubbing. PSYCH: Cooperative. Radiological data: CHEST 1 VIEW Persistent bilateral reticular opacities. Small left pneumothorax. CT BRAIN No acute abnormality. Prominent diffuse cerebral atrophy for age. CTA CHEST WITH CONTRAST 1. No CT evidence for pulmonary embolism. 2. Moderately extensive pneumomediastinum with pneumopericardium and subcutaneous soft tissue emphysema in the neck. 3. No pneumothorax. 4. Progression of bilateral pulmonary opacities with development of pneumatoceles/cavitation which may be the source of the pneumomediastinum. Disposition: DC-01 TO HOME OR SELFCARE Time spent for discharge: 34 minutes Core Measure Documentation - Palliative Care Palliative Care/ Comfort Measures: Not Applicable - Core Measures Any of the following diagnoses?: none Exam - Constitutional Vitals: Temp Pulse Resp BP Pulse Ox 98.1 F 92 H 25 H 117/75 100 05/31/19 05:17 05/31/19 13:16 05/31/19 05:17 05/31/19 04:50 05/31/19 08:43 Plan Activity: advance as tolerated Weight Bearing Status: Weight Bear as Tolerated Diet: advance as tolerated Additional Instructions: Follow-up at [facility] Follow up with: PRIMARY CAREMD [Primary Care Provider] - 3-5 Days Prescriptions: Sulfamethoxazole/Trimethoprim [Bactrim DS TAB] 1 each PO BID #15 tablet
[2019-05-31] MEDS ORDERED: ENOXAPARIN 40 MG/0.4 ML INJ SUB-Q SCH (22:00)
[2019-05-31] MEDS ORDERED: FAMOTIDINE 10 MG TAB PO SCH (22:00)
[2019-05-31] MEDS ORDERED: cefTRIAXone/NS 1 GM/50 ML 1 GM/50 ML BAG IV SCH (22:00)
[2019-05-31] MEDS ORDERED: SENNOSIDES 8.6 MG TAB PO SCH (22:00)
== END 2019-05-31 18:00 | disposition home or self-care (01) | DRG 199 ==
LOC: ED 16:25 → IMCU 05-31 04:25
PROVIDERS: ADMIT Internal Medicine; ATTEND Internal Medicine
DX: J93.9 Pneumothorax, unspecified (principal); J18.9 Pneumonia, unspecified organism; I31.9 Disease of pericardium, unspecified; Z21 Asymptomatic human immunodeficiency virus [HIV] infection status; F17.210 Nicotine dependence, cigarettes, uncomplicated; D64.9 Anemia, unspecified; J98.2 Interstitial emphysema; F12.10 Cannabis abuse, uncomplicated; F41.9 Anxiety disorder, unspecified; R55 Syncope and collapse
CPT/HCPCS: 36415; 70450; 71045; 71275; 80053; 80307; 80320; 81001; 82550; 82553; 84484; 85025; 93005; 93010; 94640; 94760; G0378; G0480; J0696; J7030; Q9967